=== PATIENT | female | born 1990 | race Caucasian/White ===

== ENCOUNTER → 2020-09-21 14:43 | Outpatient (BNVA) | payer OTHER, SELFPAY | PROVIDERS: Visit Provider Nurse Practitioner Family | DX: Z20.822 Contact with and (suspected) exposure to COVID-19 (principal); J06.9 Acute upper respiratory infection, unspecified | CPT/HCPCS: 87635 ==

== ENCOUNTER → 2021-03-21 11:50 | Outpatient (BNVA) | payer BC, SELFPAY | PROVIDERS: Visit Provider Nurse Practitioner | DX: R52 Pain, unspecified (principal); J03.80 Acute tonsillitis due to other specified organisms; B96.89 Other specified bacterial agents as the cause of diseases classified elsewhere | CPT/HCPCS: 87880 ==

== ENCOUNTER 2021-09-11 09:30 | Emergency (ER) | payer BC, SELFPAY ==
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
[2021-09-11 10:01] VITALS: BP 107/68; PULSE 77; RESP 15; TEMP 37.1; O2SAT 99; BMI 21.9
[2021-09-11] MEDS: HYDROcodone-acetaminophen 5-325 mg Tablet 1 TAB PO (10:07)
[2021-09-11 10:08] VITALS: BP 107/68; PULSE 77; RESP 15; TEMP 37.1; O2SAT 99
[2021-09-11 10:40] VITALS: BP 107/68; PULSE 77; RESP 15; TEMP 37.1; O2SAT 99
== END 2021-09-11 10:42 | disposition home or self-care (01) ==
PROVIDERS: Emergency Provider Physician Assistant
DX: S99.922A Unspecified injury of left foot, initial encounter (principal); F17.210 Nicotine dependence, cigarettes, uncomplicated; W13.3XXA Fall through floor, initial encounter
CPT/HCPCS: 73630; 99283

== ENCOUNTER 2021-10-16 06:11 | Emergency (ER) | payer BC, SELFPAY ==
[2021-10-16 06:16] VITALS: BP 113/71; PULSE 87; RESP 16; TEMP 36.4; O2SAT 98; BMI 21.1
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
[2021-10-16] MEDS: ketorolac 60 mg/2 mL INJ IM (06:42)
--- NOTE | 2021-10-16 07:10 | PC.NURSE ---
Report from MARK ANTHONY Pang
== END 2021-10-16 07:48 | disposition home or self-care (01) ==
PROVIDERS: Emergency Provider Family Medicine
DX: S00.83XA Contusion of other part of head, initial encounter (principal); S05.12XA Contusion of eyeball and orbital tissues, left eye, initial encounter; W22.8XXA Striking against or struck by other objects, initial encounter; F17.210 Nicotine dependence, cigarettes, uncomplicated
CPT/HCPCS: 70486; 96372; 99285; J1885

== ENCOUNTER 2021-10-21 20:36 | Emergency (ER) | payer BC, SELFPAY ==
[2021-10-21 20:38] VITALS: BMI 195.6
[2021-10-21 20:43] VITALS: BP 114/87; PULSE 73; RESP 16; TEMP 37; O2SAT 97
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
[2021-10-21] MEDS: HYDROcodone-acetaminophen 5-325 mg Tablet 1 TAB PO (21:18)
[2021-10-21] MEDS: tetanus-diphtheria tox (adult) 0.5 mL SDV IM (21:19)
[2021-10-21] MEDS: sodium chloride 0.9% 1,000 ML 999 ML IV (21:20)
[2021-10-21 21:36] LABS: Basophils # 0.1 10^3/uL (0.0-0.1); Basophils % 1.3 %; Eosinophils # 0.2 10^3/uL (0.0-0.8); Eosinophils % 2.7 %; Hematocrit 44.4 % (37.0-47.0); Hemoglobin 14.4 g/dL (11.5-15.3); Lymphocytes # 2.8 10^3/uL (0.8-4.8); Lymphocytes % 39.1 %; Mean Corpuscular HGB Conc 32.4 g/dL (30.0-36.0); Mean Corpuscular Hemoglobin 30.6 pg (28.0-34.0); Mean Corpuscular Volume 94.3 fl (81-99); Mean Platelet Volume 10.4 fL (7.4-10.4); Monocytes # 0.5 10^3/uL (0.2-0.9); Monocytes % 6.8 %; Neutrophils # 3.55 10^3/uL (1.8-7.7); Neutrophils % 49.8 %; Nucleated Red Blood Cells % 0 %; Platelet Count 310 10^3/cmm (130-400); Red Blood Count 4.71 10^6/uL (4.1-5.3); Red Cell Distribution Width 12.6 % (12.1-15.1); White Blood Count 7.1 10^3/uL (4.0-10.0)
[2021-10-21] MEDS: iohexol 350 mg/mL 100 mL Btl IV (21:46)
[2021-10-21 21:58] LABS: Alanine Aminotransferase 72 U/L (0-33); Albumin Level 4.3 g/dL (3.5-5.2); Alkaline Phosphatase 71 U/L (35-105); Aspartate Amino Transferase 36 U/L (0-32); Blood Urea Nitrogen 10 mg/dL (6-20); Calcium 8.5 mg/dL (8.5-10.5); Carbon Dioxide 29 mmol/L (22-29); Chloride 107 mmol/L (98-107); Globulin 2.9 g/dL (1.3-4.6); Glomerular Filtration Rate 116.6 mL/min (90-130); Glucose 93 mg/dL (65-115); Osmolality Calculated 297 mOsm/kg (285-295); Sodium 144 mmol/L (136-145); Total Bilirubin 0.3 mg/dL (0.15-1.2); Total Protein 7.2 g/dL (6.6-8.7)
[2021-10-21 22:39] LABS: HCG Qualitative Urine. Negative (Negative)
[2021-10-21 23:00] LABS: Bilirubin Urine Neg (Negative); Blood Urine Neg (Negative); Glucose Urine UA Norm (Normal); Ketones Urine Negative (Negative); Leukocyte Esterase Urine Negative (Negative); Nitrate Urine Negative (Negative); Protein Urine Neg (Negative); Urine Appearance Clear (CLEAR); Urine Color Colorless (Yellow); Urobilinogen Urine Norm (Negative); pH Urine 6 (5-7)
[2021-10-21 23:01] LABS: Add Urine Culture? No; Squamous Epithelial Cell Urine 0-4 /hpf (0-5)
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
== END 2021-10-22 | disposition home or self-care (01) ==
PROVIDERS: Emergency Provider Emergency Medicine
DX: S22.31XA Fracture of one rib, right side, initial encounter for closed fracture (principal); S32.038A Other fracture of third lumbar vertebra, initial encounter for closed fracture; F17.210 Nicotine dependence, cigarettes, uncomplicated; Y04.2XXA Assault by strike against or bumped into by another person, initial encounter; Z23 Encounter for immunization
CPT/HCPCS: 70450; 71045; 71260; 72125; 74177; 80053; 81001; 81025; 85025; 90471; 90714; 99285; J7030; Q9967